=== PATIENT | female | born 1935 | race African-American/Black ===

== ENCOUNTER 2018-02-16 16:25 | Emergency (ER) | payer MEDICAID, MEDICARE ==
[~2018-02-16] VITALS: Ht 160 cm; Wt 68.0 kg
[2018-02-16] MEDS ORDERED: KETOROLAC 15MG/ML VIAL IV ONE (18:45)
[2018-02-16] MEDS ORDERED: ACETAMINOPHEN 325MG TABLET PO ONE (18:45)
[2018-02-16 19:50] LABS: BASOPHILS % 0.6 % (0.0-2.0); EOSINOPHILS % 1.1 % (0.0-5.0); HEMATOCRIT. 41.6 % (36.0-48.0); HEMOGLOBIN. 13.8 g/dL (12.0-16.0); LYMPHOCYTES % 28.8 % (20.0-50.0); MEAN CORPUSCULAR HEMOGLOBIN 30.3 pg (28.0-32.0); MEAN CORPUSCULAR VOLUME 91.3 fL (81.0-99.0); MEAN PLATELET VOLUME 6.8 fl (7.4-10.4); MONOCYTES % 11.4 % (2.0-8.0); NEUTROPHILS % 58.1 % (40.0-76.0); PLATELET 313 x1000/uL (130-400); RED BLOOD CELL COUNT 4.55 mill/uL (4.2-5.4); RED CELL DISTRIBUTION WIDTH 14.5 % (11.6-14.6)
[2018-02-16 19:54] LABS: CHLORIDE 108 mEq/L (98-107)
[2018-02-16 20:44] VITALS: BP 150/87
== END 2018-02-16 20:48 | disposition home or self-care (01) ==
LOC: ER 16:25
DX: S09.90XA Unspecified injury of head, initial encounter (principal); R51 Headache; R55 Syncope and collapse; I10 Essential (primary) hypertension; Z90.710 Acquired absence of both cervix and uterus; W18.39XA Other fall on same level, initial encounter; Y93.89 Activity, other specified; Y92.89 Other specified places as the place of occurrence of the external cause; Y99.8 Other external cause status
CPT/HCPCS: 36415; 70450; 71045; 80053; 83880; 84484; 85025; 93005; 96374; 99284; J1885

== ENCOUNTER → 2018-05-08 | Outpatient (CLI) | payer MEDICARE | END | disposition home or self-care (01) | LOC: CARD 08:34 | PROVIDERS: ATTEND Psychiatry & Neurology Neurology | DX: G47.00 Insomnia, unspecified (principal); G44.209 Tension-type headache, unspecified, not intractable ==

== ENCOUNTER 2022-07-16 02:31 | Emergency (ER) | payer BC, MEDICARE ==
[~2022-07-16] VITALS: Ht 177.8 cm; Wt 77.0 kg
[2022-07-16] MEDS ORDERED: SODIUM CHLORIDE 0.9% 1,000 ML IV ONE (02:45)
[2022-07-16] MEDS ORDERED: METOCLOPRAMIDE HCL 10MG/2ML VIAL IV ONE (02:45)
[2022-07-16 03:00] VITALS: BP 205/98
[2022-07-16] MEDS ORDERED: CLONIDINE 0.1MG TABLET PO ONE (03:15)
[2022-07-16] MEDS ORDERED: ACETAMINOPHEN 325MG TABLET PO ONE (03:45)
[2022-07-16] MEDS ORDERED: LISI20TA31 PO (06:01)
[2022-07-16 07:10] LABS: BASOPHILS % 0.6 % (0.0-2.0); EOSINOPHILS % 1.5 % (0.0-5.0); HEMATOCRIT. 40.8 % (36.0-48.0); HEMOGLOBIN. 13.9 g/dL (12.0-16.0); LYMPHOCYTES % 18.2 % (20.0-50.0); MEAN CORPUSCULAR HEMOGLOBIN 30.3 pg (28.0-32.0); MEAN CORPUSCULAR VOLUME 89.2 fL (81.0-99.0); MEAN PLATELET VOLUME 7.1 fl (7.4-10.4); MONOCYTES % 8.5 % (2.0-8.0); NEUTROPHILS % 71.2 % (40.0-76.0); PLATELET 305 x1000/uL (130-400); RED BLOOD CELL COUNT 4.58 mill/uL (4.2-5.4); RED CELL DISTRIBUTION WIDTH 14.1 % (11.6-14.6)
[2022-07-16 07:19] LABS: CHLORIDE 108 mEq/L (98-107)
== END 2022-07-16 07:07 | disposition home or self-care (01) ==
LOC: ER 02:31
DX: I10 Essential (primary) hypertension (principal)
CPT/HCPCS: 36415; 80048; 85025; 99283; J7030

== ENCOUNTER 2022-10-30 11:46 | Emergency (ER) | payer BC, MEDICARE ==
[~2022-10-30] VITALS: Ht 165.1 cm; Wt 68.0 kg
[~2022-10-30 11:46] MED LIST: LISI20TA31 PO
[2022-10-30 11:57] VITALS: TEMP 98.2; O2SAT 96
[2022-10-30 13:48] LABS: BASOPHILS % 0.3 % (0.0-2.0); EOSINOPHILS % 0.4 % (0.0-5.0); HEMATOCRIT. 43.1 % (36.0-48.0); HEMOGLOBIN. 14.2 g/dL (12.0-16.0); LYMPHOCYTES % 18.7 % (20.0-50.0); MEAN CORPUSCULAR HEMOGLOBIN 29.7 pg (28.0-32.0); MEAN CORPUSCULAR VOLUME 89.8 fL (81.0-99.0); MEAN PLATELET VOLUME 6.7 fl (7.4-10.4); MONOCYTES % 8.8 % (2.0-8.0); NEUTROPHILS % 71.8 % (40.0-76.0); PLATELET 283 x1000/uL (130-400); RED CELL DISTRIBUTION WIDTH 14.5 % (11.6-14.6); WHITE BLOOD COUNT 6.3 x1000/uL (4.5-11.0)
[2022-10-30 14:11] LABS: PROTHROMBIN TIME 10.3 sec (9.6-11.0)
[2022-10-30 14:28] LABS: CHLORIDE 109 mEq/L (98-107); INDEX HEMOLYSI 1 (1-3); INDEX ICTERIC 1 (1-4); INDEX LIPEMIC 1 (1-3); POTASSIUM 3.6 mEq/L (3.5-5.1); SODIUM 142 mEq/L (136-145)
[2022-10-30 14:40] LABS: ALANINE AMINOTRANSFERASE 16 IU/L (13-61); ALBUMIN 3.6 g/dL (3.4-5.0); ASPARTATE AMINOTRANSFERASE 14 IU/L (15-37); BILIRUBIN TOTAL 0.9 mg/dL (0.1-1.0); CALCIUM 9.4 mg/dL (8.5-10.1); CARBON DIOXIDE 29 mEq/L (21-32); CREATININE 0.9 mg/dL (0.6-1.3); NT PRO B-TYPE NATRIURETIC PEP 81 pg/mL (5-125); PROTEIN TOTAL 7.4 g/dL (6.0-8.3); TROPONIN I HIGH SENSITIVITY 28 ng/L (<54); UREA NITROGEN BLOOD 13 mg/dL (7-21)
[2022-10-30 15:31] LABS: GLUCOSE 105 mg/dL (70-105)
[2022-10-30] MEDS ORDERED: LISI10TA26 MT (18:19)
[2022-10-30] MEDS ORDERED: LISINOPRIL 10MG TABLET PO ONE (18:30)
[2022-10-30 20:00] VITALS: BP 185/99; PULSE 80; RESP 18
== END 2022-10-30 20:20 | disposition home or self-care (01) ==
LOC: ER 12:15
DX: R53.1 Weakness (principal); I10 Essential (primary) hypertension; R41.0 Disorientation, unspecified
CPT/HCPCS: 36415; 51702; 71045; 80053; 83880; 84484; 85025; 93005; 99285